=== PATIENT | male | born 1985 | race Caucasian/White ===

== ENCOUNTER 2020-10-09 12:07 | Emergency (ER) | payer OTHER ==
[~2020-10-09] VITALS: Ht 177.8 cm; Wt 113.4 kg
[2020-10-09 12:48] VITALS: BP 140/85
[2020-10-09] MEDS ORDERED: MORPHINE SULFATE 4 MG/ML SYR IM ONE (13:05)
[2020-10-09] MEDS ORDERED: NAPR-54 PO (13:36)
[2020-10-09] MEDS ORDERED: METH750T5 PO (13:36)
[2020-10-09] MEDS ORDERED: LIDO1ADH47 TP (13:36)
[2020-10-09] MEDS ORDERED: KETOROLAC 30 MG/ML VIAL IVP ONE (13:40)
[2020-10-09] MEDS ORDERED: NACL 0.9% 1,000 ML IV ONE (13:40)
[2020-10-09] MEDS ORDERED: MORPHINE SULFATE 2 MG/ML SYR IVP ONE (14:40)
[2020-10-09 15:06] VITALS: BP 135/80
== END 2020-10-09 15:06 | disposition home or self-care (01) ==
LOC: MED 12:07
DX: S39.012A Strain of muscle, fascia and tendon of lower back, initial encounter (principal); Z79.899 Other long term (current) drug therapy; Z98.890 Other specified postprocedural states; X58.XXXA Exposure to other specified factors, initial encounter; Y93.89 Activity, other specified; Y92.89 Other specified places as the place of occurrence of the external cause; Y99.8 Other external cause status
CPT/HCPCS: 74176; 81002; 96361; 96372; 96374; 96375; 99284; J1885; J2270; J7030

== ENCOUNTER 2021-01-02 21:10 | Emergency (ER) | payer OTHER ==
[~2021-01-02] VITALS: Ht 177.8 cm; Wt 108.9 kg
[~2021-01-02 21:10] MED LIST: LIDO1ADH47 TP; METH750T5 PO; NAPR-54 PO
[2021-01-02 21:16] VITALS: BP 155/97
--- NOTE | 2021-01-02 22:35 | NUR ---
PT WAS TAKEN TO BED 2 VIA WHEEL CHAIR
--- NOTE | 2021-01-02 23:01 | NUR ---
PT BIB SELF FOR C/O 10/10 LOWER BACK PAIN THAT RADIATE TO BILATERAL LE. PT UNABLE TO AMBULATED D/T PAIN. PT REPORTS HE WAS [place] AND DIAGNOSED WITH HERNIATED DISCS AND "SEVERE ARTHRITIS TO HIPS AND LEGS." PT REPORTS TINGLING TO BILATERAL LE. PER PT, HE RAN OUT OF PAIN MEDICATION AND WAS TOLD TO COME TO ER IF PAIN PERSISTED. PT ALSO REPORTED HE IS TO START PHYSICAL THERAPY TOMORROW, BUT IS UNSURE D/T THE PAIN. MED HX: HERNIATED DISCS, ARTHRITIS ALLERGIES: BEES, IBUPROFEN
--- NOTE | 2021-01-02 23:06 | NUR ---
PT REPORTS UNABLE TO PEE AT THIS TIME. PER MOTHER AT BEDSIDE, HE HAS NOT BEEN DRINKING ENOUGH WATER.
[2021-01-02] MEDS: HYDROcodone/APAP 5/325 MG 1 TAB TAB PO ONE (23:22)
[2021-01-02] MEDS: ONDANSETRON 4 MG ODT PO ONE (23:23)
--- NOTE | 2021-01-03 | NUR ---
ERMD MADE AWARE, PT UNABLE TO URINATE AT THIS TIME.
[2021-01-03] MEDS ORDERED: PRED20TA5 PO (01:35)
[2021-01-03] MEDS ORDERED: ACET-8386 PO (01:35)
[2021-01-03 01:45] VITALS: BP 136/71
--- NOTE | 2021-01-03 01:45 | NUR ---
Patient discharged with v/s stable. Written and verbal after care instructions given and explained. Patient alert, oriented and verbalized understanding of instructions. Ambulatory with steady gait. All questions addressed prior to discharge. ID band removed. Patient advised to follow up with PMD. Rx of NORCO AND DELTASONE given. Patient educated on indication of medication including possible reaction and side effects. Opportunity to ask questions provided and answered.
[2021-01-03] MEDS: HYDROcodone/APAP 5/325 MG 1 TAB TAB PO ONE (01:51)
== END 2021-01-03 01:45 | disposition home or self-care (01) ==
LOC: MED 21:10
DX: M54.9 Dorsalgia, unspecified (principal); G89.29 Other chronic pain; Z79.899 Other long term (current) drug therapy; Z88.8 Allergy status to other drugs, medicaments and biological substances
CPT/HCPCS: 99284; Q0162

== ENCOUNTER 2021-02-24 10:20 | Emergency (ER) | payer OTHER ==
[~2021-02-24] VITALS: Ht 177.8 cm; Wt 104.3 kg
[~2021-02-24 10:20] MED LIST changes: +ACET-8386 PO; +PRED20TA5 PO
[2021-02-24 10:32] VITALS: BP 161/95
--- NOTE | 2021-02-24 10:48 | NUR ---
PT AMB TO BED 11.
--- NOTE | 2021-02-24 10:49 | NUR ---
BIB MOTHER C/O LOWER BACK PAIN X 2 MONTHS. DENIES DYSURIA OR TRAUMA RECENTLY. PMH: HERNIATED DISE, ARTHRITIS. DENIES N/V/D; SKIN IS PINK/WARM/DRY; AAOX4 WITH EVEN AND STEADY GAIT; LUNGS CLEAR BL; HR EVEN AND REGULAR; PT DENIES ANY FEVER, CP, SOB, OR COUGH AT THIS TIME; PATIENT STATES PAIN OF 10/10 AT THIS TIME; VSS; PATIENT POSITIONED FOR COMFORT; HOB ELEVATED; BEDRAILS UP X1; BED DOWN. ER MD MADE AWARE OF PT STATUS.
[2021-02-24] MEDS ORDERED: MORPHINE SULFATE 4 MG/ML SYR IM ONE (11:15)
[2021-02-24] MEDS ORDERED: LID5T TP (11:18)
[2021-02-24] MEDS ORDERED: ACET-8386 PO (11:18)
--- NOTE | 2021-02-24 11:30 | NUR ---
PT RESTING, SITTING AT EDGE OF BED, VISIBLE EQUAL RISE AND FALL OF CHEST, VSS, WILL CONTINUE TO MONITOR.
[2021-02-24 12:02] VITALS: BP 152/91
--- NOTE | 2021-02-24 12:02 | NUR ---
Patient discharged with v/s stable. Written and verbal after care instructions given HERNIATED DISC AND ACUTE BACK PAIN and explained. Patient alert, oriented and verbalized understanding of instructions. Ambulatory with steady gait. All questions addressed prior to discharge. ID band removed. Patient advised to follow up with PMD. Rx of LIDOCAINE PATCH AND NORCO given. Patient educated on indication of medication including possible reaction and side effects. Opportunity to ask questions provided and answered.
== END 2021-02-24 12:02 | disposition home or self-care (01) ==
LOC: MED 10:20
DX: M54.5 Low back pain (principal); F17.210 Nicotine dependence, cigarettes, uncomplicated; Z79.899 Other long term (current) drug therapy; Z88.6 Allergy status to analgesic agent; Z98.890 Other specified postprocedural states
CPT/HCPCS: 81002; 96372; 99283; J2270

== ENCOUNTER 2023-03-20 23:20 | Emergency (ER) | payer OTHER ==
[~2023-03-20] VITALS: Ht 177.8 cm; Wt 127.0 kg
[~2023-03-20 23:20] MED LIST changes: -ACET-8386 PO; +ACET-8905 PO; +LID5T TP
[2023-03-20 23:23] VITALS: BP 140/74; PULSE 117; RESP 16; TEMP 98.2; O2SAT 99
[2023-03-20] MEDS ORDERED: NACL 0.9% 2,000 ML IV ONE (23:25)
[2023-03-20 23:44] LABS: BASOPHILS # (AUTO) 0.1 K/uL (0.00-0.22); BASOPHILS % (AUTO) 0.8 % (0.0-2.0); EOSINOPHILS # (AUTO) 0.1 K/uL (0-0.4); EOSINOPHILS % (AUTO) 1.3 % (0.0-4.0); HEMATOCRIT 43.6 % (36-52); LYMPHOCYTES # (AUTO) 2.5 K/uL (2.0-11.5); LYMPHOCYTES % (AUTO) 32.4 % (20.5-51.1); MEAN CORPUSCULAR HEMOGLOBIN 31 pg (27-31); MEAN CORPUSCULAR HGB CONC 35 g/dL (33-37); MEAN CORPUSCULAR VOLUME 88.4 fL (80-94); MONOCYTES # (AUTO) 0.7 K/uL (0.8-1.0); MONOCYTES % (AUTO) 8.8 % (1.7-9.3); NEUTROPHILS # (AUTO) 4.5 K/uL (1.8-7.7); NEUTROPHILS % (AUTO) 56.7 % (42.2-75.2); PLATELET COUNT (AUTO) 191 K/uL (140-450); RED BLOOD CELL COUNT(AUTO) 4.94 MIL/uL (4.20-6.10); RED CELL DISTRIBUTION WIDTH 14.5 % (11.6-13.7); WHITE BLOOD COUNT (AUTO) 7.8 K/uL (4.8-10.8)
[2023-03-20 23:57] VITALS: O2SAT 93
[2023-03-21 00:17] LABS: ALANINE AMINOTRANSFERASE 92 U/L (12-78); ALCOHOL, BLOOD 67 mg/dL (<10); ALKALINE PHOSPHATASE 96 U/L (50-136); ANION GAP 24.7 (8-16); ASPARTATE AMINOTRANSFERASE 106 U/L (15-37); CALCIUM 9.4 mg/dL (8.5-10.1); CHLORIDE 92 mmol/L (98-107); GFR ARICAN-AMERICAN 109 mL/min (>90); GFR NON ARICAN-AMERICAN 90 mL/min (>90); GLUCOSE 141 mg/dL (74-106); SODIUM SERUM 130 mmol/L (136-145); TOTAL PROTEIN, SERUM 7.5 g/dL (6.4-8.2); UREA NITROGEN, BLOOD 4 mg/dL (7-18)
[2023-03-21 00:20] LABS: ACETAMINOPHEN < 0.5 ug/ml (10-30); POTASSIUM 2.7 mmol/L (3.5-5.1); SALICYLATE < 2.8 mg/dL (2.8-20.0)
[2023-03-21] MEDS ORDERED: KCL 20 MEQ IN 100 mL PREMIX 200 ML IV ONE (00:20)
[2023-03-21 03:10] LABS: AMPHETAMINE, URINE NEGATIVE ng/ml (NEG <=1000); BARBITURATE, URINE NEGATIVE ng/ml (NEG <=200); BENZODIAZEPINE, URINE NEGATIVE ng/mL (NEG <=200); COCAINE, URINE NEGATIVE ng/mL (NEG <=300)
[2023-03-21 03:11] LABS: CANNABINOID, URINE POSITIVE ng/mL (NEG <=50); OPIATE, URINE POSITIVE ng/mL (NEG <=2000); PHENCYCLIDINE SCREEN,URINE NEGATIVE ng/mL (NEG <=25)
[2023-03-21 03:27] VITALS: TEMP 98.2
[2023-03-21] MEDS ORDERED: THIAMINE 200 MG/2 ML VIAL IV ONE (03:55)
[2023-03-21] MEDS ORDERED: MAG SULF 2000 MG/WATER PREMIX 50 ML IV ONE (03:55)
[2023-03-21 03:59] LABS: APPEARANCE,URINE CLEAR (CLEAR); BILIRUBIN,URINE 1+ (NEGATIVE); BLOOD, URINE 1+ (NEGATIVE); COLOR,URINE YELLOW (YELLOW); LEUKOCYTE ESTERASE ,URINE NEGATIVE (NEGATIVE); NITRITE, URINE NEGATIVE (NEGATIVE); PROTEIN,URINE TRACE (NEGATIVE); UGLUCOSE NEGATIVE (NEGATIVE); UROBILINOGEN,URINE 0.2 EU/dL (0.2 - 1)
[2023-03-21 04:06] LABS: ICTOTEST POSITIVE (NEGATIVE)
[2023-03-21 04:07] LABS: BACTERIA,URINE 10-30 (MOD) /HPF (None Seen); MUCUS,URINE 1+ /LPF (None Seen); RBC,URINE 0-5 /HPF (0-5); SQUAMOUS EPITHELIAL CELL,UR 0-3 (FEW) /LPF (0-3 (FEW)); WBC,URINE 0-5 /HPF (0-5)
[2023-03-21 05:27] VITALS: BP 128/86; PULSE 101; RESP 25; O2SAT 95
[2023-03-21 06:44] LABS: ANION GAP 17.4 (8-16); CALCIUM 8.6 mg/dL (8.5-10.1); CREATININE 0.8 mg/dL (0.6-1.3); POTASSIUM 3.4 mmol/L (3.5-5.1)
== END 2023-03-21 07:50 | disposition left against medical advice (07) ==
LOC: MED 23:20
DX: E86.0 Dehydration (principal); F41.9 Anxiety disorder, unspecified; Z88.6 Allergy status to analgesic agent; Z79.899 Other long term (current) drug therapy; Z20.822 Contact with and (suspected) exposure to COVID-19
CPT/HCPCS: 36415; 80048; 80053; 80305; 81001; 83605; 84484; 85025; 87426; 93005; 96361; 96365; 96366; 96367; 96368; 96375; 99285; G0480; G0482; J3411; J3475; J3480; J7030